=== PATIENT | female | born 1945 | race Caucasian/White ===

== ENCOUNTER 2017-01-08 08:39 | Emergency (ER) | payer MEDICARE, OTHER ==
[2017-01-08] MEDS ORDERED: ONDANSETRON HCL INJ/PF 4 MG/2 ML SDV IV ONE ×2 (08:55→10:42)
--- NOTE | 2017-01-08 09:22 | RADIOLOGY REPORT (SQ) ---
EXAM DESCRIPTION: HIP LEFT AP/LATERAL COMPLETED DATE/TIME: 01/08/2017 9:10 am REASON FOR STUDY: fall with injury COMPARISON: None. NUMBER OF VIEWS: Two views. TECHNIQUE: AP pelvis and additional frog-leg view of the left hip. LIMITATIONS: None. FINDINGS: MINERALIZATION: Osteopenic LEFT HIP: There is an acute fracture, left femoral neck intertrochanteric region with various angulat ion best demonstrated on the frog-leg view. No left acetabular fracture. RIGHT HIP: No fracture or dislocation. No worrisome bone lesions. PUBIS AND ISCHIUM: No fracture. PELVIS: No fracture. SACRUM: No fracture. Left-sided SI joint sclerosis. LOWER LUMBAR SPINE: Disc space narrowing and facet arthropathy at L3-4, L4-5, L5-S1 SOFT TISSUES: No findings. OTHER: No other significant finding. IMPRESSION: Acute left femoral neck intertrochanteric fracture with varus angulation, best shown on the frogleg lateral view TECHNICAL DOCUMENTATION: JOB ID: [id number] [employer]- All Rights Reserved
[2017-01-08] MEDS ORDERED: NORMAL SALINE 1000 ML 1,000 ML IV ONE (09:49)
[2017-01-08 10:14] LABS: ABSOLUTE BASOPHILS # (AUTO) 0.1 10^3/uL (0.0-0.2); ABSOLUTE EOSINOPHILS # (AUTO) 0.1 10^3/uL (0.0-0.6); ABSOLUTE LYMPHOCYTES (AUTO) 1.8 10^3/uL (0.5-4.7); ABSOLUTE MONOCYTES (AUTO) 0.5 10^3/uL (0.1-1.4); ABSOLUTE NEUT (AUTO) 12.2 10^3/uL (1.7-8.2); BASOPHILS % (AUTO) 0.4 % (0-2); EOSINOPHILS % (AUTO) 0.4 % (0-6); HEMATOCRIT 36.3 % (36.0-47.0); HEMOGLOBIN 12.5 g/dL (12.0-15.5); HGB HCT DIFFERENCE 1.2; LYMPHOCYTES % (AUTO) 12.2 % (13-45); MEAN CORPUSCULAR HEMOGLOBIN 31.4 pg (27.0-33.4); MEAN CORPUSCULAR HGB CONC 34.5 g/dL (32.0-36.0); MEAN CORPUSCULAR VOLUME 91 fl (80-97); MONOCYTES % (AUTO) 3.7 % (3-13); RED CELL DISTRIBUTION WIDTH 13.8 % (11.5-14.0); SEGMENTED NEUTROPHILS % (AUTO) 83.3 % (42-78); WHITE BLOOD COUNT 14.7 10^3/uL (4.0-10.5)
[2017-01-08 10:31] LABS: ANION GAP 11 (5-19); BLOOD UREA NITROGEN 16 mg/dL (7-20); CALCIUM 9.4 mg/dL (8.4-10.2); CARBON DIOXIDE 22 mmol/L (22-30); CHLORIDE 103 mmol/L (98-107); CREATININE RESULT 0.78 mg/dL (0.52-1.25); GLUCOSE 167 mg/dL (75-110); POTASSIUM 3.9 mmol/L (3.6-5.0)
[2017-01-08] MEDS ORDERED: HYDROMORPHONE HCL INJ/PF 2 MG/ML AMPULE IV ONE (10:42)
[2017-01-08 10:59] LABS: PROTHROMBIN TIME 13.2 SEC (11.4-15.4)
--- NOTE | 2017-01-08 11:22 | ER Document Report ---
ED General - General Chief Complaint: Fall Injury Stated Complaint: FALL HIP PAIN Time Seen by Provider: 01/08/17 08:55 - HPI Patient complains to provider of: Left hip pain Notes: Patient coming in for evaluation of left hip pain. Patient states she is ablating this morning she tripped over cord falling on the left side and has excruciating left hip pain. Patient transported by EMS with her legs bent at the knees pillow underneath patient states is the most comfortable position. Patient denies any other injuries denies loss consciousness denies any chest pain abdominal pain. Patient has history of hyperlipidemia and atrial fibrillation. Patient denies being on any blood thinning medications including aspirin or Plavix. No obvious distress upon my evaluation - Related Data Allergies/Adverse Reactions: No Known Allergies Allergy (Unverified 01/08/17 12:20) Home Medications: Current Home Medications Biotin [Biotin 1 mg Tablet] 1 mg PO DAILYP PRN 01/08/17 [History] Calcium Carbonate [Calcium] 500 mg PO DAILYP PRN 01/08/17 [History] Losartan Potassium [Losartan Potassium] 100 mg PO DAILY 01/08/17 [History] Simvastatin [Simvastatin] 20 mg PO DAILY 01/08/17 [History] Past Medical History - Social History Smoking Status: Unknown if Ever Smoked Family History: Reviewed & Not Pertinent - Past Medical History Cardiac Medical History: Reports: Hx Atrial Fibrillation, Hx Hypertension Review of Systems - Review of Systems Constitutional: No symptoms reported EENT: No symptoms reported Cardiovascular: No symptoms reported Respiratory: No symptoms reported Gastrointestinal: No symptoms reported Genitourinary: No symptoms reported Female Genitourinary: No symptoms reported Musculoskeletal: Other - Left hip pain Skin: No symptoms reported Hematologic/Lymphatic: No symptoms reported Neurological/Psychological: No symptoms reported Physical Exam - Vital signs Vitals: Temp Pulse Resp BP Pulse Ox 97.3 F 70 12 148/58 H 95 01/08/17 08:46 01/08/17 08:46 01/08/17 08:46 01/08/17 08:46 01/08/17 08:46 Interpretation: Normal - General General appearance: Appears well, Alert - HEENT Head: Normocephalic, Atraumatic Eyes: Normal Pupils: PERRL - Respiratory Respiratory status: No respiratory distress Chest status: Nontender Breath sounds: Normal Chest palpation: Normal - Cardiovascular Rhythm: Regular Heart sounds: Normal auscultation Murmur: No - Abdominal Inspection: Normal Distension: No distension Bowel sounds: Normal Tenderness: Nontender Organomegaly: No organomegaly - Back Back: Normal, Nontender - Extremities General upper extremity: Normal inspection, Nontender, Normal color, Normal ROM , Normal temperature General lower extremity: Normal inspection, Other - Patient with tenderness palpation of the left hip. Patient keeps her knees bent unable to extend the knee fully pedal pulses are intact of the left side. No: Edema - Neurological Neuro grossly intact: Yes Cognition: Normal Orientation: AAOx4 [place] Coma Scale Eye Opening: Spontaneous [place] Coma Scale Verbal: Oriented [place] Coma Scale Motor: Obeys Commands [place] Coma Scale Total: 15 Speech: Normal Motor strength normal: LUE, RUE, LLE, RLE Sensory: Normal - Psychological Associated symptoms: Normal affect, Normal mood - Skin Skin Temperature: Warm Skin Moisture: Dry Skin Color: Normal Course - Re-evaluation Re-evalutation: 01/08/17 13:34 Patient coming in for left hip fracture. Explained to the patient due to the lack of orthopedic coverage here at [facility] with at the transfer. Patient is requested to be transferred to [facility]. I did wait for EKG and laboratory studies upon calling transfer team notified by the transfer team that the patient's family had already contacted a Dr. Mcneil who accepted the patient in transfer. I did not speak to Dr. Mcneil however transfer team did confirm his acceptance of the patient otherwise patient remained stable and is currently stable for transport. - Vital Signs Vital signs: Temp Pulse Resp BP Pulse Ox 97.3 F 70 17 128/62 H 99 01/08/17 08:46 01/08/17 08:46 01/08/17 13:01 01/08/17 13:01 01/08/17 13:01 - Laboratory Result Diagrams: 01/08/17 10:00 01/08/17 10:00 Laboratory results interpreted by me: 01/08/17 01/08/17 10:00 10:00 WBC 14.7 H Seg Neutrophils % 83.3 H Lymphocytes % 12.2 L Absolute Neutrophils 12.2 H Sodium 136.0 L Glucose 167 H Discharge - Discharge Clinical Impression: Closed left hip fracture Qualifiers: Encounter type: initial encounter Qualified Code(s): S72.002A - Fracture of unspecified part of neck of left femur, initial encounter for closed fracture Disposition: [facility] Referrals: IRINEO SCRUGGS DO [Primary Care Provider] - Follow up as needed
[2017-01-08] MEDS ORDERED: HYDROMORPHONE HCL INJ/PF 2 MG/ML AMPULE IV PRN (12:01)
[2017-01-08 13:41] VITALS: BP 142/67
[2017-01-08] MEDS ORDERED: ONDANSETRON HCL INJ/PF 4 MG/2 ML SDV IV SCH (14:00)
--- NOTE | 2017-01-08 15:39 | EKG REPORT ---
SEVERITY:- BORDERLINE ECG - SINUS RHYTHM CONSIDER ANTERIOR INFARCT VERSUS LEAD PLACEMENT ABNORMALITY : Confirmed by: Linnea Lau 08-Jan-2017 15:38:35
== END 2017-01-08 13:47 | disposition short-term general hospital (02) ==
LOC: ER 08:39
DX: S72.002A Fracture of unspecified part of neck of left femur, initial encounter for closed fracture (principal); Z79.899 Other long term (current) drug therapy; W01.0XXA Fall on same level from slipping, tripping and stumbling without subsequent striking against object, initial encounter
CPT/HCPCS: 93005; 96376; 99285; 96361; 96374; 96375; 36415; 85025; 85610; 80048; 73502; 93010; J1170; J2405; J7030